=== PATIENT | female | born 1995 | race Caucasian/White ===

== ENCOUNTER 2021-09-19 08:20 | Emergency (ER) | payer OTHER ==
[2021-09-19] MEDS ORDERED: ACETAMINOPHEN 500 MG TABLET (FP) PO ONE (08:25)
[2021-09-19] MEDS ORDERED: LIDOCAINE 5% TOPICAL PATCH TP ONE (08:26)
[2021-09-19] MEDS ORDERED: IBUPROFEN 600 MG TABLET (FP) PO ONE ×2 (08:26→08:30)
[2021-09-19 08:27] VITALS: BP 138/79; PULSE 78; TEMP 99; BMI 21.7
[2021-09-19] MEDS ORDERED: LIDOCAINE 5% TOPICAL PATCH ONE (08:30)
[2021-09-19] MEDS ORDERED: ACETAMINOPHEN 325 MG TABLET (FP) ONE (08:30)
[2021-09-19] MEDS ORDERED: FAMOTIDINE 10 MG TABLET PO ONE (08:54)
[2021-09-19] MEDS ORDERED: FAMOTIDINE 20 MG TABLET ONE (08:57)
[2021-09-19] MEDS ORDERED: METHOCARBAMOL 500 MG TABLET PO ONE (09:22)
[2021-09-19] MEDS ORDERED: METHOCARBAMOL 500 MG TABLET ONE (09:31)
[2021-09-19] MEDS ORDERED: LIDOCAINE PATCH REMOVAL MC SCH (22:00)
== END 2021-09-19 09:40 | disposition home or self-care (01) ==
LOC: FER 08:20
DX: S13.4XXA Sprain of ligaments of cervical spine, initial encounter (principal); V89.2XXA Person injured in unspecified motor-vehicle accident, traffic, initial encounter
CPT/HCPCS: 84703; 99283-25